=== PATIENT | female | born 1945 | race Caucasian/White ===

== ENCOUNTER 2018-10-28 07:09 | Outpatient (CLI) | payer OTHER ==
--- NOTE | 2018-10-31 09:18 | MRI Report ---
Reason: SPRAIN OF ANTERIOR TALOFIBULAR LIGAMENT OF RIGHT S Procedure Date: 10/28/2018 Accession Number: [id number] / [id number] Procedure: MRI - Ankle RT W/O CPT Code: FULL RESULT: EXAM: RIGHT ANKLE/HINDFOOT MRI WITHOUT CONTRAST EXAM DATE: 10/28/2018 08:07 AM. CLINICAL HISTORY: Sprain of the right anterior talofibular ligament. Ongoing pain. COMPARISON: None. TECHNIQUE: Multiplanar, multisequence T1-weighted and fluid-sensitive sequences of the ankle/hindfoot without contrast. Other: None. FINDINGS: Bones: There is artifact from a screw through the posterior subtalar joint. The findings are consistent with an attempted arthrodesis. There appears to be continuity of marrow signal between the posterior talus and calcaneum suggesting a successful fusion. There is subchondral edema in the medial, intermediate and lateral cuneiforms, and the base of the second metatarsal. Articular Cartilage: Unremarkable. Ligaments: There is thickening and decreased T1 and T2 signal in the anterior tibiofibular ligament consistent with a prior partial-thickness tear. There is thickening of the anterior talofibular and calcaneofibular ligaments suggestive of prior partial-thickness tears. The deep and superficial deltoid and spring ligaments are intact. Anterior Tendons: The tibialis anterior, extensor hallucis longus, and extensor digitorum longus tendons are unremarkable. Medial Tendons: The tibialis posterior, flexor digitorum longus, and flexor hallucis longus tendons are unremarkable. Lateral Tendons: There is thickening of the peroneus longus along the plantar surface of the midfoot. There is increased T1 and T2 signal in the tendon as it crosses over the inferior and lateral surface of the cuboid suggesting a low-grade partial-thickness tear. Peroneus brevis is intact. Achilles Tendon: The Achilles tendon is unremarkable. Musculature: No edema or fatty atrophy. Other: Small ankle and subtalar joint effusion. The contents of the sinus tarsi and tarsal tunnel are unremarkable. There is mild thickening of the medial plantar fascia without surrounding edema which is nonspecific. The subcutaneous tissues are unremarkable. IMPRESSION: 1. 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 2. 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 3. 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 4. Small ankle and subtalar joint effusion. 5. Mild degenerative change of the tarsometatarsal joints. 6. Nonspecific thickening of the medial plantar fascia. [facility]
== END 2018-10-28 07:10 | disposition home or self-care (01) ==
LOC: DI 07:09
PROVIDERS: ATTEND Podiatrist Foot & Ankle Surgery
DX: S96.011A Strain of muscle and tendon of long flexor muscle of toe at ankle and foot level, right foot, initial encounter (principal); M25.471 Effusion, right ankle; M19.071 Primary osteoarthritis, right ankle and foot